=== PATIENT | female | born 1990 | race Caucasian/White ===

== ENCOUNTER 2018-05-18 17:24 | Observation (INO) | payer OTHER ==
[~2018-05-18] VITALS: Ht 161 cm; Wt 54.1 kg
[2018-05-18] MEDS ORDERED: PREN1TAB80 PO (18:27)
[2018-05-18 19:12] VITALS: BP 121/71
[2018-05-18 20:23] LABS: APPEARANCE,URINE CLEAR (CLEAR); BILIRUBIN,URINE NEGATIVE (NEGATIVE); GLUCOSE, URINE (UA) NEGATIVE (NEGATIVE); KETONES,URINE >=80 mg/dL (NEGATIVE); LEUKOCYTE ESTERASE ,URINE NEGATIVE (NEGATIVE); NITRATE,URINE NEGATIVE (NEGATIVE); OCCULT BLOOD,URINE NEGATIVE (NEGATIVE); PROTEIN,URINE NEGATIVE (NEGATIVE); UROBILINOGEN,URINE 0.2 mg/dL (<=1.0)
[2018-05-18] MEDS ORDERED: RINGERS SOLUTION,LACTATED 1,000 ML IV SCH (20:51)
== END 2018-05-18 22:36 | disposition home or self-care (01) ==
LOC: 4S 17:24
PROVIDERS: ADMIT Obstetrics & Gynecology; ATTEND Obstetrics & Gynecology
DX: O26.893 Other specified pregnancy related conditions, third trimester (principal); R30.0 Dysuria; R10.9 Unspecified abdominal pain; Z3A.38 38 weeks gestation of pregnancy
CPT/HCPCS: 81003; G0378

== ENCOUNTER 2018-05-19 16:00 | Inpatient (IN) | payer OTHER ==
[~2018-05-19 16:00] MED LIST: PREN1TAB80 PO
[2018-05-19] MEDS ORDERED: RINGERS SOLUTION,LACTATED 1,000 ML IV SCH (16:08)
[2018-05-19] MEDS ORDERED: OXYTOCIN 30 UNITS/LACT RINGERS 500 ML IV ONE (16:08)
[2018-05-19] MEDS ORDERED: RINGERS SOLUTION,LACTATED 1,000 ML IV PRN (16:08)
[2018-05-19] MEDS ORDERED: METOCLOPRAMIDE HCL 5 MG/ML 2 ML VIAL IVP PRN (16:15)
[2018-05-19] MEDS ORDERED: LIDOCAINE/PF 1% 30 ML VIAL INJ PRN (16:15)
[2018-05-19] MEDS ORDERED: FentaNYL CITRATE-PF 100 MCG/2 ML VIAL IVP PRN (16:15)
[2018-05-19] MEDS ORDERED: CITRIC ACID/SODIUM CITRATE 30 ML SOLUTION UDCUP PO PRN (16:15)
[2018-05-19 18:44] LABS: BASOPHILS % (AUTO) 0.1 % (0.0-2.0); EOSINOPHILS % (AUTO) 0 % (1.0-6.0); HEMATOCRIT 35.8 % (36-46); HEMOGLOBIN 12.2 g/dL (12.0-16.0); LYMPHOCYTES % (AUTO) 8.6 % (22.0-44.0); MEAN CORPUSCULAR HEMOGLOBIN 29.8 pg (26.0-34.0); MEAN CORPUSCULAR HGB CONC 34.2 G/dL (31.0-37.0); MEAN CORPUSCULAR VOLUME 87 fL (80-100); MONOCYTES # (AUTO) 0.8 K/uL (0.1-1.0); MONOCYTES % (AUTO) 6.6 % (2.0-9.0); NEUTROPHILS # (AUTO) 9.9 K/uL (1.8-7.7); NEUTROPHILS % (AUTO) 84.7 % (40.0-70.0); PLATELET COUNT (AUTO) 156 K/uL (150-450); RED BLOOD CELL COUNT(AUTO) 4.11 MIL/uL (4.00-5.20); RED CELL DISTRIBUTION WIDTH 14.9 % (11.5-14.5)
[2018-05-19] MEDS ORDERED: OXYGEN THERAPY IH SCH (20:00)
[2018-05-19] MEDS ORDERED: MORPHINE SULFATE 4 MG/ML SYRINGE ONE (20:22)
[2018-05-19] MEDS ORDERED: MORPHINE SULFATE 4 MG/ML SYRINGE IVP ONE (20:26)
[2018-05-19] MEDS ORDERED: GLYCERIN/WITCH HAZEL LEAF 40 PADS JAR TP PRN (21:15)
[2018-05-19] MEDS ORDERED: BENZOCAINE 20%/MENTHOL 56 GM SPRAY CANISTER TP PRN (21:15)
[2018-05-19] MEDS ORDERED: OxyCODONE HCL/ACETAMINOPHEN 5-325 MG TABLET PO PRN ×2 (21:15)
[2018-05-19] MEDS ORDERED: MAGNESIUM HYDROXIDE SUSPENSION 30 ML UDCUP PO PRN (21:15)
[2018-05-19] MEDS ORDERED: LANOLIN 7 GM OINTMENT TP PRN (21:15)
[2018-05-19] MEDS: MetroNIDAZOLE 500 MG/NACL 100 ML IV SCH (22:47)
[2018-05-20 05:56] LABS: BASOPHILS % (AUTO) 0.1 % (0.0-2.0); EOSINOPHILS % (AUTO) 0 % (1.0-6.0); HEMATOCRIT 28.4 % (36-46); HEMOGLOBIN 9.9 g/dL (12.0-16.0); LYMPHOCYTES # (AUTO) 1.9 K/uL (1.0-4.8); LYMPHOCYTES % (AUTO) 15.5 % (22.0-44.0); MEAN CORPUSCULAR HEMOGLOBIN 30.4 pg (26.0-34.0); MEAN CORPUSCULAR HGB CONC 34.7 G/dL (31.0-37.0); MEAN CORPUSCULAR VOLUME 88 fL (80-100); MONOCYTES # (AUTO) 1.3 K/uL (0.1-1.0); MONOCYTES % (AUTO) 10.4 % (2.0-9.0); PLATELET COUNT (AUTO)-OB 125 K/uL (150-450); RED BLOOD CELL COUNT(AUTO) 3.25 MIL/uL (4.00-5.20); RED CELL DISTRIBUTION WIDTH 14.5 % (11.5-14.5)
[2018-05-20] MEDS: SENNA/DOCUSATE SODIUM 8.6-50 MG TABLET PO SCH ×2 (09:00→21:44)
[2018-05-20] MEDS: IBUPROFEN 600 MG TABLET PO PRN ×2 (09:43→16:55)
[2018-05-20] MEDS ORDERED: SODIUM CHLORIDE 0.9% 100 ML ONE (10:48)
[2018-05-20] MEDS: MetroNIDAZOLE 500 MG/NACL 100 ML IV SCH ×2 (10:50→23:00)
[2018-05-21 05:08] LABS: BASOPHILS % (AUTO) 0.4 % (0.0-2.0); EOSINOPHILS % (AUTO) 0.3 % (1.0-6.0); HEMOGLOBIN 10.5 g/dL (12.0-16.0); LYMPHOCYTES # (AUTO) 1.5 K/uL (1.0-4.8); LYMPHOCYTES % (AUTO) 16.3 % (22.0-44.0); MEAN CORPUSCULAR HEMOGLOBIN 31.9 pg (26.0-34.0); MEAN CORPUSCULAR HGB CONC 36.1 G/dL (31.0-37.0); MEAN CORPUSCULAR VOLUME 88 fL (80-100); MONOCYTES # (AUTO) 0.8 K/uL (0.1-1.0); MONOCYTES % (AUTO) 8.7 % (2.0-9.0); NEUTROPHILS # (AUTO) 6.7 K/uL (1.8-7.7); NEUTROPHILS % (AUTO) 74.3 % (40.0-70.0); PLATELET COUNT (AUTO)-OB 141 K/uL (150-450); RED BLOOD CELL COUNT(AUTO) 3.28 MIL/uL (4.00-5.20); RED CELL DISTRIBUTION WIDTH 14.7 % (11.5-14.5)
[2018-05-21 05:27] LABS: ALANINE AMINOTRANSFERASE 25 U/L (12-78); ALKALINE PHOSPHATASE 167 U/L (46-116); ANION GAP 4 mmol/L (8-16); ASPARTATE AMINOTRANSFERASE 27 U/L (15-37); BILIRUBIN,TOTAL 0.2 mg/dL (0.1-1.0); CALCIUM, TOTAL 8.1 mg/dL (8.8-10.5); CARBON DIOXIDE 30 mmol/L (22-29); CHLORIDE 103 mmol/L (98-107); CREATININE 0.76 mg/dL (0.60-1.30); GLOMERULAR FILTR. RATE CALC > 60 mL/min (>60); GLUCOSE,RANDOM 73 mg/dL (70-110); POTASSIUM 3.7 mmol/L (3.5-5.1); SODIUM SERUM 137 mmol/L (136-145); TOTAL PROTEIN, SERUM 5.1 g/dL (6.4-8.2); UREA NITROGEN, BLOOD 12 mg/dL (7-18)
[2018-05-21] MEDS ORDERED: IBUP-2070 PO (07:35)
[2018-05-21] MEDS ORDERED: DSS100 PO (07:36)
[2018-05-21] MEDS: SENNA/DOCUSATE SODIUM 8.6-50 MG TABLET PO SCH (08:23)
== END 2018-05-21 09:25 | disposition home or self-care (01) | DRG 806 ==
LOC: OBSVTOIN 16:00 → 4S 16:00
PROVIDERS: ADMIT Obstetrics & Gynecology; ATTEND Obstetrics & Gynecology
PROC: 10E0XZZ Delivery of Products of Conception, External Approach (ICD-10-PCS; principal; 2018-05-19)
PROC: 0W8NXZZ Division of Female Perineum, External Approach (ICD-10-PCS; 2018-05-19)
DX: O69.81X0 Labor and delivery complicated by cord around neck, without compression, not applicable or unspecified (principal); O70.20 Third degree perineal laceration during delivery, unspecified; Z37.0 Single live birth; O40.3XX0 Polyhydramnios, third trimester, not applicable or unspecified; Z3A.38 38 weeks gestation of pregnancy; Z91.048 Other nonmedicinal substance allergy status
CPT/HCPCS: 76805; 86850; 86900; 86901; J2270; J2590; J3490; J7050